=== PATIENT | male | born 2000 | race Caucasian/White ===

== ENCOUNTER 2024-09-04 09:58 | Emergency (ER) | payer MEDICAID, SELFPAY ==
[2024-09-04 10:00] VITALS: BP 94/48; PULSE 104; RESP 18; TEMP 36.7; O2SAT 99; BMI 27.2
[2024-09-04] MEDS: Ketorolac 30 MG/ML Syringe IM (10:24)
--- NOTE | 2024-09-04 10:45 | EDS_ITS ---
HPI History of Present Illness Chief Complaint: Back Informant: patient Narrative Narrative: Brought in by EMS after being released from [facility]. He states he was picked up on a warrant in [place] he was taking a [facility] as he had a warrant. He was there overnight. Dealing with low back pain for the past 2 weeks. Previous similar symptoms in the past he states his doctors are in [place]. Previously took leftover steroids. Is not a diabetic. Denies history of gas ulcers or kidney injury. Denies acute trauma. Denies loss of bowel or bladder control. No fevers. Prior similar symptoms: Yes and With Prior Back Pain [facility] Medical History Tonsillectomy planned Back pain Methamphetamine abuse Fentanyl dependence Home Medications ?Medication ?Instructions ?Recorded ?Last Taken ?Type ibuprofen 600 mg tablet 600 mg PO Q6H PRN PRN pain # 20 09/04/24 Unknown Rx TABLETS Allergy/AdvReac Type Severity Reaction Status Date / Time No Known Allergies Allergy Verified 09/04/24 10:04 Social History Smoking Status: Current every day smoker tobacco type: cigarettes ROS ROS ED Constitutional Constitutional ED: Denies fever(s) Cardiovascular Cardiovascular: Denies chest pain Respiratory/Chest Respiratory/Chest: Denies cough Gastrointestinal Gastrointestinal: Denies diarrhea or vomiting Musculoskeletal Musculoskeletal: Reports back pain; Denies none Integumentary Denies rash or wounds Neurologic Neurologic: Denies weakness EXAM Physical Exam Const Vital Signs: 09/04/24 10:00 09/04/24 10:56 Temperature 98.1 F 97.9 F Temperature Source Oral Pulse Rate 104 H 99 Respiratory Rate 18 16 Blood Pressure 94/48 L 109/70 Blood Pressure Mean 63 83 Pulse Ox 99 98 Oxygen Delivery Method Room Air Constitutional Narrative: Nontoxic, disheveled HEENT normocephalic and atraumatic Eyes General Eye ED: Yes normal appearance of both eyes Neck full ROM Resp normal respiratory effort and normal air movement Cardio regular rate and regular rhythm GI soft to palpation Back/Spine Back/Spine Narrative: Reproducible right lumbar tenderness straight leg test negative. 2+ patellar reflex bilaterally. Extremity normal to inspection and full ROM Neuro oriented x3 Skin no rashes or lesions noted and no wounds MDM MDM MDM Narrative Medical decision making narrative: Interventions / MDM: Differential diagnosis: Lumbar strain, back pain Diagnosis considered but do not suspect: No cauda equina symptoms. No fevers, no paresthesias for concerns for epidural abscess.. My EKG interpretation: N/A Imaging independently reviewed and interpreted by myself: N/A External documents reviewed: N/A Test considered but not ordered:N/A ED course: Patient nontoxic. Recurrent lumbar strain on exam. Afebrile. He is treated with IM Toradol for anti-inflammatory control. Patient from [place], unable to call anybody for a ride. He states his mother lives in [place] for which she was living with prior. No emergent condition at this time. Patient able to ambulate however requested crutches as it would help him. Discharged with prescription for ibuprofen. he was able to get a hold of his mother to come pick him up. Re-evaluation: stable Disposition discussed with patient/family/significant other: Patient Case discussed with consulting clinician: N/A This note was generated with [employer] dictation software. It may contain incorrect words, spelling, and punctuation that were not noted in checking the note before signing. Discharge Plan Triage Chief Complaint: Back ED Provider: Pastor Kelly Dx/Rx/DC Orders Clinical Impression: Lumbar strain, Back pain Instructions: Understanding Lumbosacral Strain Prescriptions: New ibuprofen 600 mg tablet 600 mg PO Q6H PRN PRN (Reason: pain) Qty: 20 0RF Primary Care Provider: Care Physician,No Primary Referrals: Care Physician,No Primary [Primary Care Provider] - Activity Restrictions/Additional Instructions: Take medication as prescribed. Follow-up with your doctor. Print Language: [place] Disposition Disposition: Home, Self Care Discharge Date/Time: 09/04/24 10:57
[2024-09-04 10:56] VITALS: BP 109/70; PULSE 99; RESP 16; TEMP 36.6; O2SAT 98
--- NOTE | 2024-09-04 11:01 | ED.RN ---
Pt requested a set of crutches to help him walk. Pt states that it helps relieve the pain in his leg from his back. Per Dr Kelly, ok to give the pt. Pt wanted this nurse to speak to his mother. I spoke with her and she said she was told that we are kicking him out into the street. I explained that we have no reason to keep the pt in the ED or the hospital. She explained that she is not able to drive and is working on a ride but wanted to know if we could put him in an uber or a cab and send him to [place]. I explained that I could not do that, due to the cost. Officer Douglas offered to drive him downtown to wait if she would like that. I told the mother that pt could wait in the waiting room for a ride as long as him didn't become a problem. Pt stated that he would not be a problem. Officer Douglas is aware and the triage nurse is also aware to let me know if he becomes an issue.
== END 2024-09-04 10:57 | disposition home or self-care (01) ==
PROVIDERS: Emergency Provider Emergency Medicine; Visit Provider Emergency Medicine
DX: S39.012A Strain of muscle, fascia and tendon of lower back, initial encounter (principal); F17.210 Nicotine dependence, cigarettes, uncomplicated; X58.XXXA Exposure to other specified factors, initial encounter
CPT/HCPCS: 96372; 99284